=== PATIENT | female | born 1980 | race Caucasian/White ===

== ENCOUNTER 2017-07-02 15:32 | Emergency (ER) | payer SELFPAY ==
[2017-07-02 16:01] LABS: BILIRUBIN,URINE NEGATIVE (NEG); GLUCOSE,URINE NEGATIVE (NEG); NITRITE,URINE NEGATIVE (NEG); PROTEIN,URINE NEGATIVE (NEG-TRACE); UROBILINOGEN,URINE 0.2 mg/dL (0.2 mg/dL)
[2017-07-02 16:08] LABS: BARBITURATES NEG (NEG); BENZODIAZEPINES POS (NEG); CANNABINOIDS NEG (NEG); COCAINE NEG (NEG); METHADONE NEG (NEG); OPIATES POS (NEG); PHENCYCLIDINE NEG (NEG)
[2017-07-02 16:10] LABS: BACTERIA,URINE MOD /HPF (0-FEW); RBC,URINE 0 /HPF (0-2); SQUAMOUS EPITHELIAL CELL,UR MANY /LPF; WBC,URINE 20-40 /HPF (0-4)
[2017-07-02 16:27] LABS: BASO # 0.1 x10^3/uL (0.0-0.2); BASO % 1 % (0-3); EOS % 5 % (0-3); HEMATOCRIT 28.1 % (36.0-47.0); HEMOGLOBIN 9.4 g/dL (12.0-15.5); LYMPH # 2.2 x10^3/uL (1.0-4.8); LYMPH % 39 % (24-48); MEAN CORPUSCULAR HEMOGLOBIN 29 pg (25-35); MEAN CORPUSCULAR HGB CONC 34 g/dL (31-37); MEAN CORPUSCULAR VOLUME 86 fL (79-100); MONO % 10 % (0-9); NEUT % 45 % (31-73); PLATELET COUNT 264 x10^3/uL (140-400); RED BLOOD COUNT 3.28 x10^6/uL (3.50-5.40); RED CELL DISTRIBUTION WIDTH 15.8 % (11.5-14.5); WHITE BLOOD COUNT 5.7 x10^3/uL (4.0-11.0)
--- NOTE | 2017-07-02 16:31 | PHYS DOC ---
Adult General Chief Complaint Chief Complaint: ABDOMINAL PAIN HPI HPI Patient is a 36 year old female with a history of left ovary cysts who presents today with moderate left lower quadrant abdominal pain that began 20 minutes prior to arrival to the ED patient is moaning and groaning. Patient states this is not unusual for her ovarian cyst but would like ultrasound to make sure it is an ovarian cyst. Patient states she is homeless. Patient denies any chance she is , she states her tubes are tied and she does not have the right ovary. Review of Systems Review of Systems Constitutional: Denies fever or chills [] Eyes: Denies change in visual acuity, redness, or eye pain [] HENT: Denies nasal congestion or sore throat [] Respiratory: Denies cough or shortness of breath [] Cardiovascular: No additional information not addressed in HPI [] GI: Left lower quadrant pain : Denies dysuria or hematuria [] Musculoskeletal: Denies back pain or joint pain [] Integument: Denies rash or skin lesions [] Neurologic: Denies headache, focal weakness or sensory changes [] Endocrine: Denies polyuria or polydipsia [] Current Medications Current Medications Current Medications Medications (Trade) Dose Ordered Sig/Miryam Start Time Stop Time Status Last Admin Dose Admin Ceftriaxone Sodium 50 ml @ 100 mls/hr 1X ONCE 07/02/17 16:45 07/02/17 17:14 DC 07/02/17 16:34 100 MLS/HR Hydromorphone HCl (Dilaudid) 1 mg 1X ONCE 07/02/17 17:45 07/02/17 17:46 DC 07/02/17 17:41 1 MG Ketorolac Tromethamine (Toradol) 30 mg 1X ONCE 07/02/17 16:45 07/02/17 16:46 DC 07/02/17 16:35 30 MG Ondansetron HCl (Zofran) 4 mg 1X ONCE 07/02/17 16:45 07/02/17 16:46 DC 07/02/17 16:35 4 MG Allergies Allergies Allergies Coded Allergies Type Severity Reaction Last Updated Verified diphenhydramine Adverse Reaction Mild SHAKY 07/02/17 Yes Physical Exam Physical Exam Constitutional: Well developed, well nourished, no acute distress, non-toxic appearance. [] HENT: Normocephalic, atraumatic, bilateral external ears normal, oropharynx moist, no oral exudates, nose normal. [] Eyes: PERRLA, EOMI, conjunctiva normal, no discharge. [] Neck: Normal range of motion, no tenderness, supple, no stridor. [] Cardiovascular:Heart rate regular rhythm, no murmur [] Lungs & Thorax: Bilateral breath sounds clear to auscultation [] Abdomen: Bowel sounds normal, soft, moderate tenderness on palpation of the left lower quadrant, no right upper or right lower quadrant tenderness, no masses, no pulsatile masses. [] Skin: Warm, dry, no erythema, no rash. [] Back: No tenderness, no CVA tenderness. [] Extremities: No tenderness, no cyanosis, no clubbing, ROM intact, no edema. [] Neurologic: Alert and oriented X 3, normal motor function, normal sensory function, no focal deficits noted. [] Psychologic: Affect normal, judgement normal, mood normal. [] Current Patient Data Vital Signs Vital Signs Date Time Temp Pulse Resp B/P (MAP) Pulse Ox O2 Delivery O2 Flow Rate FiO2 07/02/17 16:36 16 96 Room Air 07/02/17 15:35 98.8 88 130/70 (90) 98.8 Lab Values Laboratory Tests Test 07/02/17 15:50 07/02/17 16:15 Urine Collection Type Unknown Urine Color Yellow Urine Clarity Clear Urine pH 6.0 Urine Specific Benton 1.025 Urine Protein Negative mg/dL (NEG-TRACE) Urine Glucose (UA) Negative mg/dL (NEG) Urine Ketones (Stick) Trace mg/dL (NEG) Urine Blood Negative (NEG) Urine Nitrite Negative (NEG) Urine Bilirubin Negative (NEG) Urine Urobilinogen Dipstick 0.2 mg/dL (0.2 mg/dL) Urine Leukocyte Esterase Large (NEG) Urine RBC 0 /HPF (0-2) Urine WBC 20-40 /HPF (0-4) Urine Squamous Epithelial Cells Many /LPF Urine Bacteria Mod /HPF (0-FEW) Urine Mucus Mod /LPF Urine Opiates Screen Pos (NEG) Urine Methadone Screen Neg (NEG) Urine Barbiturates Neg (NEG) Urine Phencyclidine Screen Neg (NEG) Urine Amphetamine/Methamphetamine Neg (NEG) Urine Benzodiazepines Screen Pos (NEG) Urine Cocaine Screen Neg (NEG) Urine Cannabinoids Screen Neg (NEG) Urine Ethyl Alcohol Neg (NEG) White Blood Count 5.7 x10^3/uL (4.0-11.0) Red Blood Count 3.28 x10^6/uL (3.50-5.40) L Hemoglobin 9.4 g/dL (12.0-15.5) L Hematocrit 28.1 % (36.0-47.0) L Mean Corpuscular Volume 86 fL (79-100) Mean Corpuscular Hemoglobin 29 pg (25-35) Mean Corpuscular Hemoglobin Concent 34 g/dL (31-37) Red Cell Distribution Width 15.8 % (11.5-14.5) H Platelet Count 264 x10^3/uL (140-400) Neutrophils (%) (Auto) 45 % (31-73) Lymphocytes (%) (Auto) 39 % (24-48) Monocytes (%) (Auto) 10 % (0-9) H Eosinophils (%) (Auto) 5 % (0-3) H Basophils (%) (Auto) 1 % (0-3) Neutrophils # (Auto) 2.6 x10^3uL (1.8-7.7) Lymphocytes # (Auto) 2.2 x10^3/uL (1.0-4.8) Monocytes # (Auto) 0.6 x10^3/uL (0.0-1.1) Eosinophils # (Auto) 0.3 x10^3/uL (0.0-0.7) Basophils # (Auto) 0.1 x10^3/uL (0.0-0.2) Sodium Level 141 mmol/L (136-145) Potassium Level 3.5 mmol/L (3.5-5.1) Chloride Level 105 mmol/L (98-107) Carbon Dioxide Level 25 mmol/L (21-32) Anion Gap 11 (6-14) Blood Urea Nitrogen 10 mg/dL (7-20) Creatinine 0.7 mg/dL (0.6-1.0) Estimated GFR (Cockcroft-Gault) 93.6 Glucose Level 119 mg/dL (70-99) H Calcium Level 8.5 mg/dL (8.5-10.1) Ethyl Alcohol Level < 10 mg/dL (0-10) Laboratory Tests 07/02/17 16:15 Laboratory Tests 07/02/17 16:15 EKG EKG [] Radiology/Procedures Radiology/Procedures []PROCEDURE: PELVIS W/TV Pelvic ultrasound History: Severe left pelvic pain. History of right oophorectomy. Comparison: None. Technique: Transabdominal ultrasound was performed to evaluate the uterine fundus. Endovaginal imaging was performed to evaluate optimally the endometrial canal and lower uterine segment. TRANSABDOMINAL IMAGING Findings: Uterus and ovaries are not well seen transabdominal imaging. The left ovary measures 5.1 x 4.2 x 3.9 cm and demonstrates physiologic cyst measuring 3.6 cm. Left ovary demonstrates normal vascular flow by Doppler interrogation is without evidence of torsion. ENDOVAGINAL IMAGING Findings: The uterus measures 10.0 cm in length and is unremarkable. The endometrium measures 17 mm. Nabothian cysts are seen. Right ovary is not visualized. The left ovary measures 4.8 x 3.6 x 3.2 cm and demonstrates a few follicles. No adnexal masses are identified. No significant free fluid is identified within the pelvis. Impression: 1. Right ovary is not visualized, compatible with oophorectomy. 2. Left ovarian cyst. 3. Unremarkable appearance of the uterus. Electronically signed by: Jamin Celaya MD (07/02/2017 5:58 PM) [facility] DICTATED and SIGNED BY: JAMIN CELAYA MD DATE: 07/02/171755 CC: BREANA LOPEZ APRN; NO PCP ~ Course & Med Decision Making Course & Med Decision Making Pertinent Labs and Imaging studies reviewed. (See chart for details) This is a 36-year-old female patient with history of ovarian cyst who presents today complaining of left lower quadrant abdominal pain. CBC BMP with no acute findings. Positive for UTI. Pelvic ultrasound noted for left ovarian cyst. No torsion. Patient was discharged with Bactrim, she was also discharged with Ultram and instructed follow up with an [employer] as soon as she can. She was provided return precautions and discharged in stable condition. Dragon Disclaimer Dragon Disclaimer This electronic medical record was generated, in whole or in part, using a voice recognition dictation system. Departure Departure Impression: Primary Impression: UTI (urinary tract infection) Additional Impression: Ovarian cyst Disposition: 01 HOME, SELF-CARE Condition: STABLE Referrals: NO PCP (PCP) DUTCH MCQUEEN MD follow up next week Patient Instructions: Ovarian Cyst, Urinary Tract Infection Additional Instructions: You were seen for left ovarian cyst and urinary tract infection. We provided you an [employer] to follow-up with in the next 1-7 days. Complete your antibiotics. Take the pain medicine as needed. Scripts Tramadol Hcl (ULTRAM) 50 Mg Tablet 1 TAB PO Q6HRS, #30 TAB Prov: BREANA LOPEZ APRN 07/02/17 Sulfamethoxazole/Trimethoprim (BACTRIM DS TABLET) 1 Each Tablet 1 TAB PO BID, #10 TAB Prov: BREANA LOPEZ APRN 07/02/17 Problem Qualifiers Primary Impression: UTI (urinary tract infection) Urinary tract infection type: acute cystitis Hematuria presence: without hematuria Qualified Codes: N30.00 - Acute cystitis without hematuria Additional Impression: Ovarian cyst Laterality: left Qualified Codes: N83.202 - Unspecified ovarian cyst, left side BREANA LOPEZ APRN Jul 02, 2017 16:31
[2017-07-02 16:43] LABS: CALCIUM 8.5 mg/dL (8.5-10.1); CREATININE 0.7 mg/dL (0.6-1.0); GFR 93.6; POTASSIUM 3.5 mmol/L (3.5-5.1)
[2017-07-02] MEDS ORDERED: HYDROmorphone 2 MG/ML VIAL IV ONE ×2 (16:45→17:45)
[2017-07-02] MEDS ORDERED: KETOROLAC TROMETHAMINE 30 MG/ML INJ. IV ONE (16:45)
[2017-07-02] MEDS ORDERED: ONDANSETRON PF 4 MG/2 ML VIAL. IV ONE (16:45)
[2017-07-02 17:30] VITALS: BP 134/70
--- NOTE | 2017-07-02 18:02 | RAD ---
Pelvic ultrasound History: Severe left pelvic pain. History of right oophorectomy. Comparison: None. Technique: Transabdominal ultrasound was performed to evaluate the uterine fundus. Endovaginal imaging was performed to evaluate optimally the endometrial canal and lower uterine segment. TRANSABDOMINAL IMAGING Findings: Uterus and ovaries are not well seen transabdominal imaging. The left ovary measures 5.1 x 4.2 x 3.9 cm and demonstrates physiologic cyst measuring 3.6 cm. Left ovary demonstrates normal vascular flow by Doppler interrogation is without evidence of torsion. ENDOVAGINAL IMAGING Findings: The uterus measures 10.0 cm in length and is unremarkable. The endometrium measures 17 mm. Nabothian cysts are seen. Right ovary is not visualized. The left ovary measures 4.8 x 3.6 x 3.2 cm and demonstrates a few follicles. No adnexal masses are identified. No significant free fluid is identified within the pelvis. Impression: 1. Right ovary is not visualized, compatible with oophorectomy. 2. Left ovarian cyst. 3. Unremarkable appearance of the uterus. Electronically signed by: Jamin Celaya MD (07/02/2017 5:58 PM) [facility]
[2017-07-02] MEDS ORDERED: SULF1TAB24 PO (18:23)
[2017-07-02] MEDS ORDERED: TRAM-48 PO (18:23)
== END 2017-07-02 18:25 | disposition home or self-care (01) ==
LOC: ER 15:32
DX: N30.00 Acute cystitis without hematuria (principal); N83.202 Unspecified ovarian cyst, left side; Z88.8 Allergy status to other drugs, medicaments and biological substances; Z59.0 Homelessness
CPT/HCPCS: 36415; 76830; 76856; 80048; 80307; 81001; 81025; 85025; 96365; 96375; 96376; 99285; G0480; J0690; J1170; J1885; J2405; G0479